=== PATIENT | female | born 1995 | race Caucasian/White ===

== ENCOUNTER → 2020-03-10 10:48 | Outpatient (CLI) | payer OTHER, MEDICAID, SELFPAY ==
[2020-03-10 15:58] LABS: Urine N gonorrhoeae NOT DETECTED
[2020-03-10 16:04] LABS: Urine Chlamydia NOT DETECTED
== END ==
PROVIDERS: Visit Provider Specialist
DX: Z34.81 Encounter for supervision of other normal pregnancy, first trimester (principal); Z11.3 Encounter for screening for infections with a predominantly sexual mode of transmission; Z3A.13 13 weeks gestation of pregnancy
CPT/HCPCS: 87086; 87491; 87591